=== PATIENT | male | born 1955 | race Caucasian/White ===

== ENCOUNTER 2017-11-27 11:41 | Day surgery (SDC) | payer MEDICARE, OTHER ==
[~2017-11-27] VITALS: Ht 180.3 cm; Wt 93.7 kg
[~2017-11-27 11:41] MED LIST: ALBU90OI INH; AMLO5 PO; ASPI325; ASPI81EC PO; Aspir-Low81 MG PO; CYAN1000; Cleocin HCl150 MG PO; ESCI10 PO; GEMF600 PO; GLIP5 PO; HYDACE10B PO; HYDACE5 PO; HYDCHL12.5 PO; INDO25; LISI20 PO; MELO7.5 PO; META800 PO; METF500 PO; METF850; METF850 PO; MULVITB&C; MULVITMIND; Mobic15 MG PO; Monodox100 MG PO; Multivitamin1 EAC1 PO; NAPR550 PO; NITR.4SL SL; Norco 10-325 T1 EACH PO; Prednisone20 MG PO; RAMI2.5; SPACE CHAMBER1 EACH MC; TRAZ50 PO; UNKNOWN HTN MED; UNKOWN B/P MED; VITAMIN B COMPLEX; Zestril40 MG PO; [UNRECOGNIZED DRUG - REMARK]; [UNRECOGNIZED DRUG - REMARK]
== END 2017-11-27 14:14 | disposition home or self-care (01) ==
LOC: ORSCSDS 11:41
PROVIDERS: Internal Medicine Gastroenterology
PROC: 0DBK8ZX Excision of Ascending Colon, Via Natural or Artificial Opening Endoscopic, Diagnostic (ICD-10-PCS; principal; 2017-11-27 13:00)
PROC: 0DBH8ZX Excision of Cecum, Via Natural or Artificial Opening Endoscopic, Diagnostic (ICD-10-PCS; principal; 2017-11-27 13:00)
DX: Z12.11 Encounter for screening for malignant neoplasm of colon (principal); D12.0 Benign neoplasm of cecum; D12.2 Benign neoplasm of ascending colon; Z86.010 Personal history of colon polyps; K64.8 Other hemorrhoids; K57.30 Diverticulosis of large intestine without perforation or abscess without bleeding; G47.33 Obstructive sleep apnea (adult) (pediatric); I10 Essential (primary) hypertension; J45.909 Unspecified asthma, uncomplicated; I25.10 Atherosclerotic heart disease of native coronary artery without angina pectoris; E11.9 Type 2 diabetes mellitus without complications; F43.10 Post-traumatic stress disorder, unspecified; Z87.891 Personal history of nicotine dependence; Z79.82 Long term (current) use of aspirin; Z79.84 Long term (current) use of oral hypoglycemic drugs; Z79.899 Other long term (current) drug therapy
CPT/HCPCS: 82947; 88305; J2250; J7120

== ENCOUNTER 2018-02-20 12:19 | Emergency (ER) | payer MEDICARE, OTHER ==
[~2018-02-20] VITALS: Ht 175.3 cm; Wt 95.2 kg
== END 2018-02-20 13:36 | disposition home or self-care (01) ==
LOC: ER 12:19
DX: S61.012A Laceration without foreign body of left thumb without damage to nail, initial encounter (principal); Z23 Encounter for immunization; I10 Essential (primary) hypertension; E11.9 Type 2 diabetes mellitus without complications; Z79.899 Other long term (current) drug therapy; Z79.84 Long term (current) use of oral hypoglycemic drugs; Z79.82 Long term (current) use of aspirin; W27.0XXA Contact with workbench tool, initial encounter
CPT/HCPCS: 12002; 90471; 90714; 99282

== ENCOUNTER 2019-05-10 09:20 | Day surgery (SDC) | payer MEDICARE ==
[~2019-05-10] VITALS: Ht 172.7 cm; Wt 91.6 kg
[~2019-05-10 09:20] MED LIST changes: +Lovastatin10 MG PO; +Metformin HCl850 MG PO; +PANT40 PO; +PROP80ER PO; +Vitamin B Comple1 EA PO
== END 2019-05-10 13:41 | disposition home or self-care (01) ==
LOC: ORSCSDS 09:20
PROVIDERS: Internal Medicine Gastroenterology
PROC: 0DBL8ZX Excision of Transverse Colon, Via Natural or Artificial Opening Endoscopic, Diagnostic (ICD-10-PCS; principal; 2019-05-10 12:45)
DX: R93.3 Abnormal findings on diagnostic imaging of other parts of digestive tract (principal); D12.3 Benign neoplasm of transverse colon; Z86.010 Personal history of colon polyps; G47.33 Obstructive sleep apnea (adult) (pediatric); I10 Essential (primary) hypertension; E78.1 Pure hyperglyceridemia; E11.9 Type 2 diabetes mellitus without complications; Z87.891 Personal history of nicotine dependence; E66.9 Obesity, unspecified; Z68.33 Body mass index [BMI] 33.0-33.9, adult; Z79.82 Long term (current) use of aspirin; Z79.84 Long term (current) use of oral hypoglycemic drugs; Z79.899 Other long term (current) drug therapy
CPT/HCPCS: 82947; 88305; J2250; J2704; J7120

== ENCOUNTER → 2019-06-01 | Outpatient (CLI) | payer MEDICARE, OTHER | END | disposition home or self-care (01) | LOC: LAB 09:44 → LAB SHORT 09:44 → LAB FUT 11-29 16:25 | DX: G25.0 Essential tremor (principal) | CPT/HCPCS: 36415; 84443 ==

== ENCOUNTER → 2019-08-10 | Outpatient (CLI) | payer MEDICARE, OTHER ==
[2019-08-10 14:24] LABS: U Amphetamine Screen Not Detected; U Barbituate Screen Not Detected; U Benzodiazapine Screen Not Detected; U Buprenorphine Screen Not Detected; U Cannabinoids Screen DETECTED; U Cocaine Screen Not Detected; U Methadone Screen Not Detected; U Methamphetamine Screen Not Detected; U Opiates Screen DETECTED; U Oxycodone Screen Not Detected; U Phencyclidine Screen Not Detected; U Propoxyphene Screen Not Detected
== END | disposition home or self-care (01) ==
LOC: LAB SHORT 13:07 → LAB 13:07
PROVIDERS: Nurse Practitioner Family
DX: Z51.81 Encounter for therapeutic drug level monitoring (principal); Z79.899 Other long term (current) drug therapy
CPT/HCPCS: G0480

== ENCOUNTER → 2020-10-02 | Outpatient (CLI) | payer MEDICARE | LOC: PLD 14:11 → LAB SHORT 14:11 | PROVIDERS: Nurse Practitioner Family | DX: F33.1 Major depressive disorder, recurrent, moderate (principal); F41.9 Anxiety disorder, unspecified; N40.1 Benign prostatic hyperplasia with lower urinary tract symptoms; R14.0 Abdominal distension (gaseous); R39.81 Functional urinary incontinence | CPT/HCPCS: 86677 ==

== ENCOUNTER 2021-09-03 10:03 | Day surgery (SDC) | payer MEDICARE, OTHER ==
[~2021-09-03] VITALS: Ht 167.6 cm; Wt 104.6 kg
[~2021-09-03 10:03] MED LIST changes: +ATOR40TA PO; +BUSP5 PO; +Bentyl10 MG PO; +CLOP75 PO; +DULO60 PO; +Dicyclomine HCl10 MG PO; +Isosorbide Mono30 MG PO; +SPIRIVA RESPIMAT4 G3 INH
--- NOTE | 2021-09-03 12:17 | NUR ---
09/03/21 1217 MOHSEN SULLIVAN PT PULLED IV AFTER SCOPE OUT AND SITE WAS ASSESSED/BANDAGED. END NOTE ORSC.RDS
== END 2021-09-03 12:20 | disposition home or self-care (01) ==
LOC: ORSCSDS 10:03
PROVIDERS: Internal Medicine Gastroenterology
PROC: 0DJD8ZZ Inspection of Lower Intestinal Tract, Via Natural or Artificial Opening Endoscopic (ICD-10-PCS; principal; 2021-09-03 12:00)
DX: Z12.11 Encounter for screening for malignant neoplasm of colon (principal); Z86.010 Personal history of colon polyps; K57.30 Diverticulosis of large intestine without perforation or abscess without bleeding; K64.4 Residual hemorrhoidal skin tags; I10 Essential (primary) hypertension; E66.9 Obesity, unspecified; Z68.37 Body mass index [BMI] 37.0-37.9, adult; I25.10 Atherosclerotic heart disease of native coronary artery without angina pectoris; J44.9 Chronic obstructive pulmonary disease, unspecified; Z87.891 Personal history of nicotine dependence; G47.33 Obstructive sleep apnea (adult) (pediatric); E11.9 Type 2 diabetes mellitus without complications; Z79.01 Long term (current) use of anticoagulants; Z79.84 Long term (current) use of oral hypoglycemic drugs; Z79.899 Other long term (current) drug therapy
CPT/HCPCS: 82947; J0461; J2405; J2704; J7120

== ENCOUNTER 2022-09-08 14:35 | Emergency (ER) | payer MEDICARE, OTHER ==
[~2022-09-08] VITALS: Ht 172.7 cm; Wt 108.9 kg
[2022-09-08 15:57] LABS: BASOPHILS ABSOLUTE AUTO 0.07 K/mm3 (0.00-0.23); BASOPHILS PERCENT AUTO 1 % (0-2); EOSINOPHILS ABSOLUTE AUTO 0.37 K/mm3 (0.00-0.68); EOSINOPHILS PERCENT AUTO 4 % (0-6); Hemoglobin 14.8 g/dL (13.5-17.5); IMMATURE GRAN ABSOLUTE AUTO 0.04 K/mm3 (0.00-0.10); IMMATURE GRAN PERCENT AUTO 1 % (0-1); LYMPHOCYTES ABSOLUTE AUTO 2.13 K/mm3 (0.84-5.20); LYMPHOCYTES PERCENT AUTO 26 % (21-46); MONOCYTES ABSOLUTE AUTO 0.68 K/mm3 (0.16-1.47); MONOCYTES PERCENT AUTO 8 % (4-13); Mean Corpuscular HGB 29.7 pg (26.0-34.0); Mean Corpuscular HGB Conc 33.6 g/dL (31.5-36.5); Mean Corpuscular Volume 88 fL (80-100); Mean Platelet Volume 9.2 fL (9.1-12.4); NEUTROPHILS ABSOLUTE AUTO 5.05 K/mm3 (1.96-9.15); NEUTROPHILS PERCENT AUTO 61 % (41-73); Platelet Count 287 K/mm3 (150-400); RDW Coefficient Variation 13.1 % (11.7-14.2); RDW Standard Deviation 41.8 fL (35.1-46.3); Red Blood Cell Count 4.98 M/mm3 (4.30-5.90); White Blood Cell Count 8.34 K/mm3 (4.00-11.30)
[2022-09-08 16:24] LABS: Albumin, Blood 3.9 g/dL (3.4-5.0); Albumin/Globulin Ratio 1.1 (0.8-1.8); Bilirubin, Total 0.5 mg/dL (0.1-1.0); Bun/Creatinine Ratio 19.9 (12.0-20.0); Calcium, Blood 9.5 mg/dL (8.5-10.1); Creatinine, Blood 0.95 mg/dL (0.60-1.20); Globulin, Blood 3.6 g/dL (2.2-4.0); Potassium, Blood 4.1 mmol/L (3.5-5.5); Total Protein, Blood 7.5 g/dL (6.4-8.2)
[2022-09-08] MEDS ORDERED: PRED20 PO (21:27)
[2022-09-08] MEDS ORDERED: AZIT250 PO (21:27)
== END 2022-09-08 21:40 | disposition home or self-care (01) ==
LOC: ER 14:35
PROVIDERS: Physician Assistant
DX: J44.1 Chronic obstructive pulmonary disease with (acute) exacerbation (principal); C34.92 Malignant neoplasm of unspecified part of left bronchus or lung; I10 Essential (primary) hypertension; E11.9 Type 2 diabetes mellitus without complications; G47.33 Obstructive sleep apnea (adult) (pediatric); Z87.891 Personal history of nicotine dependence
CPT/HCPCS: 36415; 71046; 71260; 80053; 84484; 85025; 93005; 93010; 94640; 94664; J2930; Q9967

== ENCOUNTER 2022-09-17 21:16 | Inpatient (IN) | payer MEDICARE, OTHER ==
[~2022-09-17] VITALS: Ht 172.7 cm; Wt 109.5 kg
[~2022-09-17 21:16] MED LIST changes: +AZIT250 PO; +Glucophage 850850 MG PO; -Metformin HCl850 MG PO; +PRED20 PO
[2022-09-17 22:09] LABS: BASOPHILS ABSOLUTE AUTO 0.05 K/mm3 (0.00-0.23); BASOPHILS PERCENT AUTO 0 % (0-2); EOSINOPHILS ABSOLUTE AUTO 0.45 K/mm3 (0.00-0.68); EOSINOPHILS PERCENT AUTO 3 % (0-6); Hemoglobin 15.1 g/dL (13.5-17.5); IMMATURE GRAN PERCENT AUTO 1 % (0-1); LYMPHOCYTES ABSOLUTE AUTO 2.61 K/mm3 (0.84-5.20); LYMPHOCYTES PERCENT AUTO 18 % (21-46); MONOCYTES ABSOLUTE AUTO 1.43 K/mm3 (0.16-1.47); MONOCYTES PERCENT AUTO 10 % (4-13); Mean Corpuscular HGB 29.9 pg (26.0-34.0); Mean Corpuscular HGB Conc 33.6 g/dL (31.5-36.5); Mean Corpuscular Volume 89 fL (80-100); Mean Platelet Volume 9.4 fL (9.1-12.4); NEUTROPHILS PERCENT AUTO 69 % (41-73); Platelet Count 350 K/mm3 (150-400); RDW Coefficient Variation 13.2 % (11.7-14.2); RDW Standard Deviation 43.3 fL (35.1-46.3); Red Blood Cell Count 5.05 M/mm3 (4.30-5.90); White Blood Cell Count 14.94 K/mm3 (4.00-11.30)
[2022-09-17 22:21] LABS: Base Excess Venous -2.3 mmol/L; Bicarbonate Venous 21.2 mmol/L (24.0-30.0); PCO2 Venous 55.8 mmHg (38-42); pH Blood Venous 7.26 (7.34-7.37)
[2022-09-17 22:28] LABS: Albumin, Blood 3.2 g/dL (3.4-5.0); Albumin/Globulin Ratio 0.9 (0.8-1.8); Bilirubin, Total 0.6 mg/dL (0.1-1.0); Bun/Creatinine Ratio 16.7 (12.0-20.0); Calcium, Blood 9.1 mg/dL (8.5-10.1); Creatinine, Blood 2.4 mg/dL (0.60-1.20); Globulin, Blood 3.5 g/dL (2.2-4.0); Total Protein, Blood 6.7 g/dL (6.4-8.2)
[2022-09-17 23:14] LABS: Influenza A, PCR NEGATIVE (NEGATIVE); Influenza B, PCR NEGATIVE (NEGATIVE); Resp Syncytial Virus, PCR NEGATIVE (NEGATIVE); SARS-Cov-2 (COVID-19) PCR, MMC NEGATIVE (NEGATIVE)
[2022-09-18 01:57] LABS: Base Excess Venous -5.3 mmol/L; Bicarbonate Venous 20.3 mmol/L (24.0-30.0); PCO2 Venous 36.2 mmHg (38-42); pH Blood Venous 7.36 (7.34-7.37)
--- NOTE | 2022-09-18 01:57 | NUR ---
ADMISSION: PT ARRIVED TO PCU 16. SLID OVER FROM [facility] BED VIA FOUR STAFF MEMEBERS. ALERT AND ORIENTED X4, ABLE TO FOLLOW COMMANDS AND MAKE NEEDS KNOWN. BP STABLE, HR SR 80'S, PULSES STRONG AND EQUAL THROUGHOUT. AFEBRILE. SATURATIONS >93% ON 4L NC, SWITCHED TO CPAP WITH 5L BLEED IN DUE TO WORK OF BREATHING. PT USING ACCESSORY MUSCLES, COMPLAINING OF PRESSURE IN THE LUNGS, MEDICATED PER EMAR. NEW DIGANOSIS OF LUNG CANCER NOTED, PT ADMITTED FOR L LUNG PLEURAL EFFUSION, PLAN FOR POSSIBLE THORACENTESIS IN AM. MED REC COMPLETED, ASPIRIN NOTED TO BE ON PT EMAR, RADIOLOGY MADE AWARE. PT ORIENTED TO ROOM AND CALL LIGHT SYSTEM. BED IN LOW, CALL LIGHT IN REACH, WILL REPORT TO ONCOMING RN.
[2022-09-18 02:19] LABS: Bun/Creatinine Ratio 18.9 (12.0-20.0); Creatinine, Blood 2.17 mg/dL (0.60-1.20); Potassium, Blood 4.6 mmol/L (3.5-5.5)
[2022-09-18 02:27] LABS: International Normalized Ratio 1.03; Prothrombin Time Results 10.8 Sec (9.7-11.5)
[2022-09-18 02:29] LABS: Hematocrit 41.3 % (37.0-53.0); Hemoglobin 13.6 g/dL (13.5-17.5); Mean Corpuscular HGB 29.8 pg (26.0-34.0); Mean Corpuscular HGB Conc 32.9 g/dL (31.5-36.5); Mean Corpuscular Volume 90 fL (80-100); Mean Platelet Volume 9.4 fL (9.1-12.4); Platelet Count 282 K/mm3 (150-400); RDW Coefficient Variation 13.3 % (11.7-14.2); RDW Standard Deviation 43.8 fL (35.1-46.3); Red Blood Cell Count 4.57 M/mm3 (4.30-5.90); White Blood Cell Count 10.87 K/mm3 (4.00-11.30)
--- NOTE | 2022-09-18 04:36 | NUR ---
SHIFT SUMMARY: NO ACUTE CHANGES SINCE ADMISSION, PT REMAINS ALERT AND ORIENTED X4, BP AND HR STABLE, AFEBRILE, SATS >94% ON CPAP WITH 5L BLEED IN. RESPIRATIONS LABORED, SHORT OF BREATH WITH MOVEMENT. MEDICATED X1 FOR PAIN, RESPONDED WELL. ABLE TO USE URINAL AT BEDSIDE. PLAN FOR THORACENTESIS IN AM. BED IN LOW, CALL LIGHT IN REACH, WILL REPORT TO ONCOMING RN.
[2022-09-18 10:26] LABS: Automated BF RBC Count 0.077 M/mm3 (0-0); Automated BF WBC Count 1.416 K/mm3 (0-999)
[2022-09-18 10:28] LABS: Body Fluid WBC Count 1416 /mm3 (0-999); RBC Count, Body Fluid 77000 /mm3 (0-0)
[2022-09-18 12:09] LABS: Appearance, Body Fluid Cloudy (Clear); Color, Body Fluid Red (None-Yellow); Total Cell Count, Body Fluid 100
--- NOTE | 2022-09-18 14:21 | NUR ---
Spiritual Care visit. Pt. is awake and sitting up on the side of bad and welcomes my visit. Nurse Yumiko was taking vitials when I visited. Pt. is pleasant and verbalizes a confidence in his dm, in spite of his uncertain prognosis. Establish rapport and pray with Pt. Pt. verbalized gratitude for the spiritual care visit.
--- NOTE | 2022-09-18 17:58 | NUR ---
END OF SHIFT NOTE / MEDICAL STATUS PT A&O X4. MADE MEDICAL NO TELE STATUS TODAY. PT VSS. SPO2 > 92% ON 4L TITRATED TO 2L NC. PT DOWN TO 1L BUT NEEDED INCREASE TO 2L FOR AMBULATION. MONITOR SHOWING SR, HR 80s-90s PRIOR TO TELEMETRY DC. PT INDEPENDENT IN RM. NO EVENTS.
[2022-09-18 18:33] LABS: Protein, Body Fluid 4.4 g/dL
[2022-09-18 18:57] LABS: Lactate Dehydrogenase, Body Fl 723 U/L
[2022-09-18 19:01] LABS: Total Protein, Blood 5.8 g/dL (6.4-8.2)
[2022-09-18] MEDS ORDERED: Vistaril50 MG PO (19:43)
--- NOTE | 2022-09-19 05:19 | NUR ---
Shift Summary Pt c/o insomnia for 3 days and inability to sleep. Gave a 2nd PRN Hydroxyzine at 0300 to help insomnia related anxiety. Pt appears to be asleep. He is wearing his CPAP all night and states the mask is not an issue, he isn't sure why he can't sleep. AOX4, VSS, independent in room, no pain or nausea. SP02>95% t/o shift. Pleasant and cooperative with care.
[2022-09-19 05:30] LABS: Hematocrit 45.4 % (37.0-53.0); Mean Corpuscular HGB 29.6 pg (26.0-34.0); Mean Corpuscular Volume 90 fL (80-100); Mean Platelet Volume 9.7 fL (9.1-12.4); Platelet Count 285 K/mm3 (150-400); RDW Coefficient Variation 13.2 % (11.7-14.2); RDW Standard Deviation 43.4 fL (35.1-46.3); Red Blood Cell Count 5.06 M/mm3 (4.30-5.90); White Blood Cell Count 10.74 K/mm3 (4.00-11.30)
[2022-09-19 06:04] LABS: Albumin, Blood 2.8 g/dL (3.4-5.0); Anion Gap 7 mmol/L (6-16); Blood Urea Nitrogen 26 mg/dL (8-24); CO2, Blood 24 mmol/L (21-32); Calcium, Blood 8.6 mg/dL (8.5-10.1); Chloride, Blood 104 mmol/L (98-108); Creatinine, Blood 1.24 mg/dL (0.60-1.20); Glomerular Filtration Rate 65 (60-); Glucose, Blood 155 mg/dL (70-99); Phosphorus, Blood 3.1 mg/dL (2.5-4.9); Potassium, Blood 4.2 mmol/L (3.5-5.5); Sodium, Blood 135 mmol/L (136-145)
[2022-09-19] MEDS ORDERED: MIRALAX17 GM PO (12:25)
[2022-09-19] MEDS ORDERED: AZIT500 PO (12:26)
[2022-09-19] MEDS ORDERED: VISBIOME 112.51 EACH PO (12:26)
[2022-09-19] MEDS ORDERED: CEFD300 PO (12:26)
--- NOTE | 2022-09-19 14:21 | NUR ---
NOTES/DISCHARGE SUMMARY: PATIENT A&OX4. CALM, PLEASANT AND COOPERATIVE c CARE. USES CALL LIGHT APPROPRIATELY AND ABLE TO MAKE NEEDS KNOWN. DENIES CP/PRESSURE. LUNGS CLEAR/DIM T/O TO AUSCULTATION. DENIES SOB. AMBULATES TO BATHROOM INDEPENDENTLY. VITAL SIGNS REVIEWED. IV TO R AC WAS DC'D. PATIENT RECEIVED SCHEDULE MEDS PER EMAR. DENIES N/V. REPORT PAIN 10/10 TO L HIP, MEDICATED X1 c OXYCODONE. REPORTS PAIN DOWN TO 2/10. PATIENT TOLERATED PO WELL. PATIENT DISCHARGE HOME. DISCHARGE INSTRUCTION PACKET GIVEN TO PATIENT. EDUCATE PATIENT REGARDING ADMITTING DX, S/S, TX AND NEW PRESCRIBED MEDICATIONS. PATIENT STATED UNDERSTANDING AND NO FURTHER QUESTIONS. RX WAS FAXED TO PATIENT PREFERRED PHARMACY ([facility] ALL PATIENT PERSONAL BELONGINGS WERE SENT HOME WITH THE PATIENT. PATIENT LEFT THE ROOM AT AROUND 1355. PATIENT TRANSPORTED VIA WHEELCHAIR BY [employer] DECAPPER STAFF WILVER TO PATIENT FAMILY PRIVATE VEHICLE.
[2022-09-20] MEDS ORDERED: SYMBICORT 80-46.9 GM INH (16:14)
[2022-09-20] MEDS ORDERED: EZET10 PO (16:16)
[2022-09-20] MEDS ORDERED: ALBU90OI INH (16:17)
[2022-09-20] MEDS ORDERED: JARDIANCE10 MG PO (16:18)
== END 2022-09-19 13:55 | disposition home or self-care (01) | DRG 180 ==
LOC: ER 21:16 → PCU 23:51 → MEDS 23:51 → PCU 09-18 00:10 → MEDS 09-18 21:40
PROVIDERS: Emergency Medicine; Internal Medicine; ADMIT Internal Medicine
PROC: 0W9B30Z Drainage of Left Pleural Cavity with Drainage Device, Percutaneous Approach (ICD-10-PCS; principal; 2022-09-18)
DX: C34.32 Malignant neoplasm of lower lobe, left bronchus or lung (principal); J18.9 Pneumonia, unspecified organism; J96.01 Acute respiratory failure with hypoxia; J96.02 Acute respiratory failure with hypercapnia; N17.9 Acute kidney failure, unspecified; E87.20 Acidosis, unspecified; E87.1 Hypo-osmolality and hyponatremia; J91.0 Malignant pleural effusion; J44.0 Chronic obstructive pulmonary disease with (acute) lower respiratory infection; Z20.822 Contact with and (suspected) exposure to COVID-19; I10 Essential (primary) hypertension; G47.33 Obstructive sleep apnea (adult) (pediatric); I95.9 Hypotension, unspecified; E11.9 Type 2 diabetes mellitus without complications; E66.9 Obesity, unspecified; F43.10 Post-traumatic stress disorder, unspecified; E86.0 Dehydration; Z68.36 Body mass index [BMI] 36.0-36.9, adult; Z99.89 Dependence on other enabling machines and devices; Z90.49 Acquired absence of other specified parts of digestive tract; Z98.890 Other specified postprocedural states; Z87.891 Personal history of nicotine dependence; Z85.118 Personal history of other malignant neoplasm of bronchus and lung; Z79.02 Long term (current) use of antithrombotics/antiplatelets; Z79.82 Long term (current) use of aspirin; Z79.84 Long term (current) use of oral hypoglycemic drugs; Z79.899 Other long term (current) drug therapy
CPT/HCPCS: 0241U; 32555; 36415; 71045; 80048; 80053; 80069; 82803; 82947; 83605; 83615; 83880; 84145; 84155; 84157; 84484; 85025; 85027; 85610; 85730; 87040; 87070; 87205; 88108; 88305; 88341; 88342; 89051; 93005; 93010; 94640; 94660; 94664; 94760; 94762; 96361; 96374; 99285-25; A9270; J0696; J1650; J7030

== ENCOUNTER 2022-10-28 19:34 | Emergency (ER) | payer MEDICARE, OTHER ==
[~2022-10-28] VITALS: Ht 170.2 cm; Wt 103.4 kg
[~2022-10-28 19:34] MED LIST changes: +AZIT500 PO; +CEFD300 PO; +EZET10 PO; +JARDIANCE10 MG PO; +MIRALAX17 GM PO; +Percocet 5-3251 EACH PO; +SYMBICORT 80-46.9 GM INH; +VISBIOME 112.51 EACH PO; +Vistaril50 MG PO
[2022-10-28] MEDS ORDERED: Percocet 5-3251 EACH PO (20:38)
== END 2022-10-28 20:48 | disposition home or self-care (01) ==
LOC: ER 19:34
DX: M54.9 Dorsalgia, unspecified (principal); G89.29 Other chronic pain; C34.90 Malignant neoplasm of unspecified part of unspecified bronchus or lung; Z79.899 Other long term (current) drug therapy; Z79.82 Long term (current) use of aspirin; Z79.84 Long term (current) use of oral hypoglycemic drugs; G47.33 Obstructive sleep apnea (adult) (pediatric); J44.9 Chronic obstructive pulmonary disease, unspecified; E11.9 Type 2 diabetes mellitus without complications; F43.10 Post-traumatic stress disorder, unspecified
CPT/HCPCS: 99283; A9270

== ENCOUNTER 2023-07-14 12:41 | Inpatient (IN) | payer MEDICARE, OTHER ==
[~2023-07-14] VITALS: Ht 172.7 cm; Wt 88.7 kg
[2023-07-14] MEDS ORDERED: Prozac20 MG PO (13:04)
[2023-07-14] MEDS ORDERED: Bentyl10 MG PO (13:05)
[2023-07-14 13:11] LABS: BASOPHILS ABSOLUTE AUTO 0.03 K/mm3 (0.00-0.23); BASOPHILS PERCENT AUTO 1 % (0-2); EOSINOPHILS ABSOLUTE AUTO 0.33 K/mm3 (0.00-0.68); EOSINOPHILS PERCENT AUTO 8 % (0-6); Hematocrit 34.2 % (37.0-53.0); Hemoglobin 11.1 g/dL (13.5-17.5); IMMATURE GRAN ABSOLUTE AUTO 0.01 K/mm3 (0.00-0.10); IMMATURE GRAN PERCENT AUTO 0 % (0-1); LYMPHOCYTES PERCENT AUTO 26 % (21-46); MONOCYTES ABSOLUTE AUTO 0.54 K/mm3 (0.16-1.47); MONOCYTES PERCENT AUTO 13 % (4-13); Mean Corpuscular HGB 29.1 pg (26.0-34.0); Mean Corpuscular HGB Conc 32.5 g/dL (31.5-36.5); Mean Corpuscular Volume 90 fL (80-100); Mean Platelet Volume 8.6 fL (9.1-12.4); NEUTROPHILS ABSOLUTE AUTO 2.23 K/mm3 (1.96-9.15); NEUTROPHILS PERCENT AUTO 53 % (41-73); Platelet Count 216 K/mm3 (150-400); RDW Coefficient Variation 15.9 % (11.7-14.2); RDW Standard Deviation 52.4 fL (35.1-46.3); Red Blood Cell Count 3.81 M/mm3 (4.30-5.90); White Blood Cell Count 4.24 K/mm3 (4.00-11.30)
[2023-07-14 13:43] LABS: Influenza A, PCR NEGATIVE (NEGATIVE); Influenza B, PCR NEGATIVE (NEGATIVE); Resp Syncytial Virus, PCR NEGATIVE (NEGATIVE); SARS-Cov-2 (COVID-19) PCR, MMC NEGATIVE (NEGATIVE)
[2023-07-14 13:47] LABS: Base Excess Venous 4.8 mmol/L; Bicarbonate Venous 28.1 mmol/L (24.0-30.0); PCO2 Venous 44.5 mmHg (38-42); pH Blood Venous 7.43 (7.34-7.37)
[2023-07-14 14:04] LABS: Albumin, Blood 3.4 g/dL (3.4-5.0); Albumin/Globulin Ratio 0.8 (0.8-1.8); Bilirubin, Total 0.6 mg/dL (0.1-1.0); Bun/Creatinine Ratio 15.9 (12.0-20.0); Calcium, Blood 9.4 mg/dL (8.5-10.1); Creatinine, Blood 0.76 mg/dL (0.60-1.20); Globulin, Blood 4.2 g/dL (2.2-4.0); Total Protein, Blood 7.6 g/dL (6.4-8.2)
[2023-07-14 17:41] VITALS: BP 149/78
[2023-07-14] MEDS ORDERED: DULO60 PO (18:08)
[2023-07-14] MEDS ORDERED: GLUCOPHAGE1000 M3 PO (18:09)
[2023-07-14] MEDS ORDERED: Prozac40 MG PO (18:09)
[2023-07-14] MEDS ORDERED: PROP160ER PO (18:09)
[2023-07-14] MEDS ORDERED: EZET10 PO (18:10)
[2023-07-14] MEDS ORDERED: TRAZ150T57 PO (18:11)
[2023-07-14] MEDS ORDERED: JARDIANCE10 MG PO (18:11)
[2023-07-14] MEDS ORDERED: Norco 10-325 T1 EACH PO (18:12)
--- NOTE | 2023-07-14 19:19 | NUR ---
SHIFT SUMMARY: ASSUMED CARE OF PATIENT UPON HIS ARRIVAL FROM ED AT 1735 TODAY. A&O X 4, PLEASANT. C/O L CHEST (MIDAXILLARY) PAIN; MEDICATED WITH DILAUDID WITH SOME RELIEF. ON O2 @ 4 L/MIN NC WITH HUMIDIFICATION; USES 3 L/MIN AT HOME. BREATH SOUNDS ARE DIM THROUGHOUT, DYSPNEIC AND TACHYPNEIC. C/O FEELING CONSTIPATED FROM PAIN MEDS TAKEN THE LAST THREE DAYS; HAS BOWEL MEDS ORDERED, GAVE PRUNE JUICE. TOLERATING DIET BUT NOT EATING MUCH. IS SUPPOSED TO HAVE HIS SCHEDULED CHEMO TOMORROW, BUT THIS AUTHOR ADVISED HIM TO CALL THE CANCER CENTER AND RESCHEDULE HIS APPOINTMENT.
[2023-07-14 19:54] VITALS: BP 146/80
[2023-07-15 02:57] VITALS: BP 168/88
[2023-07-15 06:01] LABS: Hematocrit 34.2 % (37.0-53.0); Hemoglobin 11.2 g/dL (13.5-17.5)
[2023-07-15 06:29] LABS: Bun/Creatinine Ratio 20.5 (12.0-20.0); Calcium, Blood 9.5 mg/dL (8.5-10.1); Creatinine, Blood 0.68 mg/dL (0.60-1.20); Potassium, Blood 3.9 mmol/L (3.5-5.5)
--- NOTE | 2023-07-15 07:21 | NUR ---
SHIFT SUMMARY TOVA IS A&OX4, VERY PLEASANT AND COOPERATIVE WITH CARES. BP ELEVATED, HR IN THE 90'S, O2 >95% ON 3L NC WITH HUMIDIFICATION, CPAP ON WHILE ASLEEP. PT BECOMES MORE DYSPNEIC AND TACHYPNEIC WITH EXERTION. C/O PAIN ON LEFT SIDE OF CHEST, MIDAXILLARY, 8-10/10. PAIN MEDICATIONS PER EMAR, MINIMALLY EFFECTIVE. TOLERATING AN ADA DIET, NO N/V. PT C/O FEELING CONSTIPATED, BOWEL MEDS GIVEN PER EMAR, NO BM THIS SHIFT. VOIDING ADEQUATE AMOUNTS OF CLEAR YELLOW URINE IN THE BR, OR URINAL. UP IN ROOM INDEPENDENTLY. PT AWAKE MOST OF NIGHT D/T PAIN AND NOT GETTING COMFORTABLE. PT HAS A SIGNIFICANT SHAKE/TREMOR R/T HIS PAIN. THE WORSE HIS PAIN BECOMES, THE MORE SEVERE HE SHAKES. PT IS SCHEDULED FOR CHEMO TODAY. PT IS FEELING FRUSTRATED D/T NOT KNOWING WHAT HIS PLAN OF CARE IS. BED IN LOWEST POSITION, CALL LIGHT WITHIN REACH. FIRE SAFETY CHECKS COMPLETED
[2023-07-15 07:22] VITALS: BP 155/78
--- NOTE | 2023-07-15 10:40 | NUR ---
"Spiritual Care | Pt. request Pt. is sitting up in bed when he welcomes my visit. Pt. is pleasant but displays evidence of visceral pain in his side. Facilitate a life review and established some measure of rapport. Considered matters of dm and belief. Prayed with Pt. Pt. verbalized gratitude for the spiritual care visit."
--- NOTE | 2023-07-15 11:08 | NUR ---
CALLED DR KELLER OFFICE- PT HAD AN INFUSION TODAY SCHEDULED FOR 10:30 PT WAS CONFUSED AND THOUGHT IT WAS AT 14:30. PER THE CANCER CENTER THE PT CAN NOT HAVE AN INFUSION ON THE SAME DAY HE IS DISCHARGED. PT IS TO CALL TO SCHEDULE AT THE TIME OF DISCHARGE.
[2023-07-15] MEDS ORDERED: ALBU2.5V5 INH (15:08)
[2023-07-15] MEDS ORDERED: DOCU100 PO (15:08)
[2023-07-15] MEDS ORDERED: BISA10S PR (15:08)
[2023-07-15 15:19] VITALS: BP 129/80
--- NOTE | 2023-07-15 16:21 | NUR ---
SHIFT SUMMARY- PT HAS BEEN IN ALOT OF PAIN THIS SHIFT. NEW DOSE OF OXY SEEMS TO BE HELPING. THE PT HAS RECIEVED MULTIPLE BOWEL CARE MEDS WITH NO RESULT, HOWEVER WITH THE USE OF PO AND IV PAIN MEDICATION THE PT RATES HIS PAIN AT 2/10 CURRENTLY. PT IS UP INDEPENDENTLY IN THE ROOM AND THE HALLS. NO S&S OF DISTRESS NOTED AT THIS TIME. PT IN THE CHAIR, CALL LIGHT IN REACH.
[2023-07-15 20:56] VITALS: BP 142/79
[2023-07-16 03:58] VITALS: BP 155/85
[2023-07-16 05:46] LABS: Hematocrit 36.3 % (37.0-53.0); Hemoglobin 11.6 g/dL (13.5-17.5)
[2023-07-16 06:14] LABS: Bun/Creatinine Ratio 21.8 (12.0-20.0); Calcium, Blood 9.4 mg/dL (8.5-10.1); Creatinine, Blood 0.83 mg/dL (0.60-1.20); Potassium, Blood 3.7 mmol/L (3.5-5.5)
--- NOTE | 2023-07-16 07:45 | NUR ---
SHIFT SUMMARY PT IS A&OX4, PLEASANT AND APPRECIATIVE OF CARES. VSS, BP ELEVATED, HR 90'S-100'S, O2 SATS >95% ON 3L NC, CPAP WHILE ASLEEP. PT RATES HIS PAIN ON L SIDE OF CHEST MIDAXILLARY, 8-10/10. 20 MG PERCOCET GIVEN WITH LITTLE RELIEF, HAD TO GIVE PT 2 MG IV DILAUDID 2 HOURS AFTER PERCOCET. TOLERATING AN ADA DIET, TRIES TO NOT EAT BECAUSE HE IS AFRAID OF THE PAIN TO COME. UP AD TERESA IN ROOM/BR. RESTLESS. VOIDING ADEQUATE AMOUNTS OF YELLOW URINE, NO BM THIS SHIFT. WENT TO CT SCAN AT BEGINNING OF SHIFT. BED IN LOWEST POSITION, CALL LIGHT WITHIN REACH.
[2023-07-16 08:34] VITALS: BP 142/87
--- NOTE | 2023-07-16 14:14 | NUR ---
CALLED PALLIATIVE CARE FRANCISCO BUTLER IS ASSISTING WITH SYMPTOM MANAGEMENT. PT HAS NOW REQUIRED ANOTHER DOSE OF IV PAIN MEDICATION; ALL PO OPTIONS WERE UNAVAILABLE, BECAUSE THE PT HAD ALREADY HAD THEM. FRANCISCO BUTLER IS PLANNING TO CALL DR FARMER ABOUT THIS PT AND WILL DISCUSS THE PAIN MEDS TO TRY TO BETTER CONTROL THE PT PAIN.
--- NOTE | 2023-07-16 14:22 | NUR ---
Med review done-spoke with Dr. Bowers regarding this patient's uncontrolled pain. Currently, the pt is taking scheduled 20mg Oxycontin twice daily along with prn oxycodone/apap 10/325mg, 2 tabs every 4 hours as needed, along with 1-2mg Dilaudid IV every 4 hours. He has continued to c/o 6/10 up to 10/10 pain. The goal is to reach an acceptable pain level of 4/10 consistently without the use of IV pain medicine so he can go home comfortably to follow up with oncologist as outpatient. Dr. Bowers reports increased in both oxycodone and oxycontin dosing in the past 24 hours, wants to wait until tomorrow morning before re-evaluating the medication care plan. Discussion with bedside RN, she will continue attempting to help patient reach 4/10 pain, and will report to noc shift to continue with the same plan for now. If we can help pt reach and stay at 4/10 pain, can re-evaluate and make necessary pain medication changes in the am.
--- NOTE | 2023-07-16 14:24 | NUR ---
SPOKE TO DR FARMER- HE IS AWARE THE PT IS STILL REQUIRING IV PAIN MEDICATION. HE IS AWARE. WE WILL CONTINUE TO MONITOR PAIN AND REEVALUATE NEED FOR CHANGES IN PAIN REGIMEN TOMORROW MORNING.
[2023-07-16 16:43] VITALS: BP 140/91
[2023-07-16 17:07] VITALS: BP 137/89
--- NOTE | 2023-07-16 17:10 | NUR ---
CALLED DR FARMER- PT NOW C/O LEFT SIDED CHEST PAIN. RATES IT 7/10 STABBING PAIN IN THE LEFT CHEST AND IT IS WORSE WITH ACTIVITY. PT DOES HAVE LUNG CANCER WITH METS HOWEVER THIS IS A NEW PAIN COMPLAINT. CALLED AND RECIEVED A STAT EKG ORDER.
[2023-07-16 18:05] VITALS: BP 150/84
--- NOTE | 2023-07-16 18:07 | NUR ---
PT WAS HEARD GRUNTING AND LABORED BREATHING, ENTERED THE ROOM AND THE PT WAS AT THE EOB ANNAMARIE BREATHING DOUBLED OVER C/O CP SHARP AND STABBING. DENIES ANY N/T OR RADIATION OF PAIN. NO PRESSURE. RATED THE PAIN AT THE TIME 8/10. AFTER HE WAS LAID FLAT AND VITALS CHECKED HE LOOKED MORE RELAXED AND NOW RATES HIS PAIN 4/10.
--- NOTE | 2023-07-16 19:03 | NUR ---
SHIFT SUMMARY- DR FARMER WAS CALLED ABOUT THE MOST RECENT CHEST PAIN AND ORDERED OT DOSE OF ASPIRIN WELL TO GIVE IV DILAUDID NOW. PT PAIN WAS 4/10 WHEN DILAUDID WAS ADMINISTERED FOLLOW UP HE STATES PAIN IS STILL 4/10. PT IN BED, LAYING FLAT, CPAP IN PLACE. PT HAS BEEN INDEPENDENT IN THE ROOM AND THE HALLS. 3L O2 AT BASELINE. EKG WAS DONE AFTER INITIAL CP COMPLAINT. TROPONIN WAS STILL LOW, ADDITIONAL TROPONIN CHECK AT 1999. PT CURRENTLY HAS NO S&S OF DISTRESS.
[2023-07-16 20:15] VITALS: BP 165/87
--- NOTE | 2023-07-17 02:03 | NUR ---
SHIFT SUMMARY PT RESTING QUIETLY, LF, WITH CPAP ON DURING SHIFT REPORT. PT REPORTING L SIDE AND LUQ ABD PAIN 4/10 AT TIME OF REPORT. SOON AFTER REPORT, PT SITTING UP IN BED C/O SHARP L SIDE ABD PAIN. CHRG RN IN TO CK ON PT WELL, FINDING PT VERY ANXIOUS AND RESTLESS. PT HAD BEEN MEDICATED PER EMAR WITH ALL AVAILABLE PAIN MEDICATION PRIOR TO START OF NOC SHIFT. TOP TILE DECORATOR HOSPITALIST NOTIFIED FOR ANXIETY MEDICATION; NEW ORDERS PLACED. PT THEN CALMED DOWN AND LAY MORE FLAT IN BED AND WENT TO SLEEP. PT WOKE A FEW HOURS LATER REPORTING THAT HE WAS HURTING AGAIN; MEDICATED PER EMAR AND PT WENT BACK TO SLEEP. PT IS INDEPENDENT IN AND IN HALLS. A&O AND ABLE TO MAKE NEEDS KNOWN. TROPONINS NEG; SEE CHART. CALL LT IN REACH.
[2023-07-17 04:13] VITALS: BP 138/83
[2023-07-17 05:49] LABS: Hematocrit 35.5 % (37.0-53.0); Hemoglobin 11.4 g/dL (13.5-17.5)
[2023-07-17 07:15] VITALS: BP 152/78
[2023-07-17 12:50] VITALS: BP 126/73
[2023-07-17 15:21] VITALS: BP 123/66
[2023-07-17 18:17] VITALS: BP 109/72
--- NOTE | 2023-07-17 18:19 | NUR ---
CALLED DR LI- PT HR HAS BEEN TACHY T/O THE DAY. 120-150. HE HAS BEEN DIAPHORETIC OFF AND ON AND A LITTLE MORE SOB. HOWEVER PAIN WAS OUT OF CONTROL. PT STATES THE PAIN IS UNDER CONTROL AT THIS TIME AND HE NO LONGER APPEARS ANXIOUS. REQUESTED PO RATE CONTROL MEDICATION. RECIEVED ORDER FOR METOPROLOL TARTRATE BID FIRST DOSE NOW. PRN IV FOR SUSTAINED HR OVER 130 Q6 NEEDED.
--- NOTE | 2023-07-17 18:34 | NUR ---
Multiple visits from symptom mangement. Pt having more pressure in his torso from burden of metastatic disease. Started on toradol and put in pulmonary consult. Hoping speaking with physcian would help him with decisions. He still wants to fight and is refusing hospice care. Pt has a disabled daughter he wants to live for. pt high risk for sudden cardiac event or respitory failue. Nurseing encouraged his to call his family today and rall support for his daughter. He called his sister. Will continue to monitor.
--- NOTE | 2023-07-17 19:54 | NUR ---
SHIFT SUMMARY- SPOKE TO PALLIATIVE CARE, AND MD MULTIPLE TIMES T/O THE DAY. PT HR HAS BEEN TACHY 125-150. PAIN UNMANAGEABLE THIS MORNING, ADDED TORADOL AND SCHEDULED NAPROXEN, INCREASED OXYCONTIN TO 30 MG BID. PT WAS ANXIOUS MEDICATED WITH ATARAX. WHEN HR WAS STAYING SINUS TACH 150'S PT WAS SOB AND DIAPHORETIC. DR GARRIDO CAME TO THE BEDSIDE. STAT EKG WAS DONE. PT PAIN WAS WELL MANAGED WITH THE IV TORADOL. SPOKE TO DR LI ABOUT THE CHANGE AFTER TORADOL AND SHE PLACED BID NAPROXEN. THIS EVENING PAIN AND ANXIETY APPEARED TO BE WELL MANAGED. CALLED DR LI AGAIN ABOUT THE ELEVATED HR (SEE PREV NOTE FOR DETAILS). PT RECIEVED PO METOPROLOL THIS EVENING HR IS CURRENTLY SINUS AT 93. PRN AVAILABLE IF NEEDED TONIGHT. PT IN BED ON HIS CPAP O2 SATS 98% HR 93 AT THE TIME OF BEDSIDE REPORT. PT STATES PAIN 3/10 AT THIS TIME. NIGHT RN AWARE. NO S&S OF DISTRESS NOTED.
[2023-07-17 20:38] VITALS: BP 143/74
--- NOTE | 2023-07-18 03:08 | NUR ---
SHIFT SUMMARY PT AWAKE AND SITTING UP TO EOB THIS EVENING DURING SHIFT REPORT. PT FEELING MUCH BETTER TONIGHT THAN LAST NIGHT. PT REQUESTING PAIN MEDICATION ONLY ONCE THIS SHIFT TONIGHT, WITH MUCH BETTER PAIN CONTROL. PT GIVEN TORADOL AND NAPROXEN DURING DAY SHIFT WITH GOOD EFFECT. UP INDEPENDENTLY IN RM AND TO BTHRM. DENIED FURTHER NEEDS. CALL LT IN REACH.
[2023-07-18 04:36] VITALS: BP 132/77
[2023-07-18 07:16] VITALS: BP 129/78
[2023-07-18 07:33] LABS: BASOPHILS ABSOLUTE AUTO 0.02 K/mm3 (0.00-0.23); BASOPHILS PERCENT AUTO 1 % (0-2); EOSINOPHILS ABSOLUTE AUTO 0.29 K/mm3 (0.00-0.68); EOSINOPHILS PERCENT AUTO 9 % (0-6); Hematocrit 33.9 % (37.0-53.0); Hemoglobin 10.7 g/dL (13.5-17.5); IMMATURE GRAN ABSOLUTE AUTO 0.02 K/mm3 (0.00-0.10); IMMATURE GRAN PERCENT AUTO 1 % (0-1); LYMPHOCYTES ABSOLUTE AUTO 0.85 K/mm3 (0.84-5.20); LYMPHOCYTES PERCENT AUTO 25 % (21-46); MONOCYTES ABSOLUTE AUTO 0.56 K/mm3 (0.16-1.47); MONOCYTES PERCENT AUTO 17 % (4-13); Mean Corpuscular HGB 28.8 pg (26.0-34.0); Mean Corpuscular HGB Conc 31.6 g/dL (31.5-36.5); Mean Corpuscular Volume 91 fL (80-100); Mean Platelet Volume 8.8 fL (9.1-12.4); NEUTROPHILS ABSOLUTE AUTO 1.63 K/mm3 (1.96-9.15); NEUTROPHILS PERCENT AUTO 48 % (41-73); Platelet Count 236 K/mm3 (150-400); RDW Coefficient Variation 15.9 % (11.7-14.2); RDW Standard Deviation 53.6 fL (35.1-46.3); Red Blood Cell Count 3.72 M/mm3 (4.30-5.90); White Blood Cell Count 3.37 K/mm3 (4.00-11.30)
[2023-07-18 15:55] VITALS: BP 124/69
--- NOTE | 2023-07-18 17:48 | NUR ---
SHIFT SUMMARY Pt remains A&Ox3 this shift. Pain managed with po regime. Pt took "nice nap" this afternoon. VSS. Tolerating meals. BM today. Ambulating independently in room. No futher needs id or verbalized at this time. Will continue to monitor this shift.
[2023-07-18 19:11] VITALS: BP 114/87
[2023-07-19 04:37] VITALS: BP 125/71
--- NOTE | 2023-07-19 05:35 | NUR ---
SHIFT SUMMARY PATIENT IS ALERT AND ORIENTED. PATIENT HAS HAD NO ACUTE EVENTS THIS SHIFT. VITAL SIGNS REVIEWED. PATIENT HAS REQUIRED Q4 PAIN MEDICATIONS WITH BETTER SUCCESS THAN PREVIOUS SHIFTS. PATIENT HAS HAD NO COMPLAINTS OF SOB, NAUSEA OR VOMITTING THIS SHIFT.
[2023-07-19 06:09] LABS: BASOPHILS ABSOLUTE AUTO 0.02 K/mm3 (0.00-0.23); BASOPHILS PERCENT AUTO 1 % (0-2); EOSINOPHILS PERCENT AUTO 13 % (0-6); Hematocrit 32.2 % (37.0-53.0); Hemoglobin 10.3 g/dL (13.5-17.5); IMMATURE GRAN ABSOLUTE AUTO 0.01 K/mm3 (0.00-0.10); IMMATURE GRAN PERCENT AUTO 0 % (0-1); LYMPHOCYTES PERCENT AUTO 23 % (21-46); MONOCYTES ABSOLUTE AUTO 0.55 K/mm3 (0.16-1.47); MONOCYTES PERCENT AUTO 14 % (4-13); Mean Corpuscular Volume 91 fL (80-100); Mean Platelet Volume 8.4 fL (9.1-12.4); NEUTROPHILS ABSOLUTE AUTO 2.02 K/mm3 (1.96-9.15); NEUTROPHILS PERCENT AUTO 50 % (41-73); Platelet Count 220 K/mm3 (150-400); RDW Coefficient Variation 15.9 % (11.7-14.2); RDW Standard Deviation 53.3 fL (35.1-46.3); Red Blood Cell Count 3.55 M/mm3 (4.30-5.90)
[2023-07-19 06:45] LABS: Bun/Creatinine Ratio 20.1 (12.0-20.0); Calcium, Blood 8.8 mg/dL (8.5-10.1); Creatinine, Blood 0.95 mg/dL (0.60-1.20); Potassium, Blood 4.2 mmol/L (3.5-5.5)
[2023-07-19 07:12] VITALS: BP 123/78
[2023-07-19] MEDS ORDERED: OXYC10ER PO (12:00)
[2023-07-19] MEDS ORDERED: TAMS.4ER PO (12:02)
[2023-07-19] MEDS ORDERED: Percocet 10-321 EACH PO (12:02)
[2023-07-19] MEDS ORDERED: NAPR500 PO (13:06)
--- NOTE | 2023-07-19 14:16 | NUR ---
SHIFT/DISCHARGE SUMMARY Pt remains A&Ox3 this shift. VSS. Pain managed with po regime. Ambulating independently in room. Tolerating meals and fluids. Voiding without difficulty. All discharge instruction reviewed with return verbal understanding. Two hard scripts given to pt. Home portable oxygen at bedside. Awaiting friend to drive pt to pharmacy and home.
== END 2023-07-19 14:28 | disposition home health service (06) | DRG 180 ==
LOC: ER 12:41 → MEDS 12:42 → ENPENDDIS 07-15 11:12 → MEDS 07-15 16:01
PROVIDERS: Emergency Medicine; Family Medicine; Physician Assistant; ADMIT Hospitalist
PROC: 5A09357 Assistance with Respiratory Ventilation, Less than 24 Consecutive Hours, Continuous Positive Airway Pressure (ICD-10-PCS; principal; 2023-07-16)
DX: C34.92 Malignant neoplasm of unspecified part of left bronchus or lung (principal); J96.01 Acute respiratory failure with hypoxia; C78.89 Secondary malignant neoplasm of other digestive organs; C79.89 Secondary malignant neoplasm of other specified sites; J91.0 Malignant pleural effusion; C77.2 Secondary and unspecified malignant neoplasm of intra-abdominal lymph nodes; C77.1 Secondary and unspecified malignant neoplasm of intrathoracic lymph nodes; C79.72 Secondary malignant neoplasm of left adrenal gland; K59.00 Constipation, unspecified; E11.9 Type 2 diabetes mellitus without complications; G47.33 Obstructive sleep apnea (adult) (pediatric); G89.29 Other chronic pain; M54.50 Low back pain, unspecified; J44.9 Chronic obstructive pulmonary disease, unspecified; F32.A Depression, unspecified; F43.10 Post-traumatic stress disorder, unspecified; R10.13 Epigastric pain; R33.9 Retention of urine, unspecified; Z79.82 Long term (current) use of aspirin; Z79.84 Long term (current) use of oral hypoglycemic drugs; Z79.51 Long term (current) use of inhaled steroids; Z79.02 Long term (current) use of antithrombotics/antiplatelets; Z99.81 Dependence on supplemental oxygen; Z87.891 Personal history of nicotine dependence; Z11.52 Encounter for screening for COVID-19; R93.7 Abnormal findings on diagnostic imaging of other parts of musculoskeletal system
CPT/HCPCS: 0241U; 36415; 71046; 71260; 74177; 80048; 80053; 82803; 82947; 83880; 84484; 85014; 85018; 85025; 85379; 93005; 93010; 94640; 94660; 94664; 94762; 96372; 96374-59; 96375-59; 96376; 99285-25; A9270; G0378; J1170; J1650; J1885; J2930; Q9967

== ENCOUNTER 2023-08-12 10:35 | Emergency (ER) | payer MEDICARE, OTHER ==
[~2023-08-12] VITALS: Ht 172.7 cm; Wt 86.2 kg
[~2023-08-12 10:35] MED LIST changes: +ALBU2.5V5 INH; +BISA10S PR; +DOCU100 PO; +GLUCOPHAGE1000 M3 PO; +NAPR500 PO; +OXYC10ER PO; +PROP160ER PO; +Percocet 10-321 EACH PO; +Prozac20 MG PO; +Prozac40 MG PO; +TAMS.4ER PO; +TRAZ150T57 PO
[2023-08-12 11:46] LABS: BASOPHILS ABSOLUTE AUTO 0.03 K/mm3 (0.00-0.23); BASOPHILS PERCENT AUTO 1 % (0-2); EOSINOPHILS ABSOLUTE AUTO 0.18 K/mm3 (0.00-0.68); EOSINOPHILS PERCENT AUTO 4 % (0-6); Hematocrit 30.9 % (37.0-53.0); IMMATURE GRAN ABSOLUTE AUTO 0.02 K/mm3 (0.00-0.10); IMMATURE GRAN PERCENT AUTO 1 % (0-1); LYMPHOCYTES PERCENT AUTO 22 % (21-46); MONOCYTES ABSOLUTE AUTO 0.69 K/mm3 (0.16-1.47); MONOCYTES PERCENT AUTO 17 % (4-13); Mean Corpuscular HGB 28.6 pg (26.0-34.0); Mean Corpuscular HGB Conc 32.4 g/dL (31.5-36.5); Mean Corpuscular Volume 88 fL (80-100); Mean Platelet Volume 8.4 fL (9.1-12.4); NEUTROPHILS ABSOLUTE AUTO 2.33 K/mm3 (1.96-9.15); NEUTROPHILS PERCENT AUTO 56 % (41-73); Platelet Count 288 K/mm3 (150-400); RDW Coefficient Variation 14.6 % (11.7-14.2); RDW Standard Deviation 46.8 fL (35.1-46.3); White Blood Cell Count 4.15 K/mm3 (4.00-11.30)
[2023-08-12 12:57] LABS: Albumin, Blood 3.1 g/dL (3.4-5.0); Albumin/Globulin Ratio 0.8 (0.8-1.8); Bilirubin, Total 0.5 mg/dL (0.1-1.0); Bun/Creatinine Ratio 15.5 (12.0-20.0); Calcium, Blood 9.3 mg/dL (8.5-10.1); Creatinine, Blood 0.84 mg/dL (0.60-1.20); Globulin, Blood 4.1 g/dL (2.2-4.0); Potassium, Blood 4.5 mmol/L (3.5-5.5); Total Protein, Blood 7.2 g/dL (6.4-8.2)
--- NOTE | 2023-08-12 15:38 | NUR ---
This patient is known to me from his last hospital stay in June 2023. He remains alert, oriented. He reports feeling increased pain in his chest and abdomen. He also reports increased SOB. While he states his pain is not well controlled, he explains he's stopped taking most of his opioid medication and is mostly taking tylenol, because of the constipation. We did discuss symptom management. I encouraged pt to continue drinking fluids, and to increase his Miralax to BID, along with adding in Docusate 100-200mg twice daily for constipation. We also discussed trying warm prune juice with melted butter. He states he has tried this in the past, with success. Spoke to Alice at Dr. Short, and plan to send note along with CT and Xray results from today. [facility].
[2023-08-12 16:26] VITALS: BP 114/62
== END 2023-08-12 16:26 | disposition home or self-care (01) ==
LOC: ER 10:35
PROVIDERS: Physician Assistant
DX: K59.03 Drug induced constipation (principal); T40.2X5A Adverse effect of other opioids, initial encounter; C34.92 Malignant neoplasm of unspecified part of left bronchus or lung; Z79.899 Other long term (current) drug therapy; Z79.02 Long term (current) use of antithrombotics/antiplatelets; G47.33 Obstructive sleep apnea (adult) (pediatric); J44.9 Chronic obstructive pulmonary disease, unspecified; E11.9 Type 2 diabetes mellitus without complications; F32.A Depression, unspecified; Z87.891 Personal history of nicotine dependence
CPT/HCPCS: 71046; 74177; 80053; 83880; 84484; 85025; 93005; 93010; 96374-59; 99284-25; J3010; Q9967

== ENCOUNTER 2023-09-01 12:23 | Inpatient (IN) | payer MEDICARE, OTHER ==
[2023-09-01] VITALS (9 sets, daily range): BP systolic 82–98; BP diastolic 45–72
[~2023-09-01] VITALS: Ht 172.7 cm; Wt 83.0 kg
[2023-09-01] MEDS ORDERED: Morphine Sulfate 4 MG/1 ML Injection IV ONE (13:15)
[2023-09-01] MEDS ORDERED: Ondansetron HCl 2 MG / ML 2ML Vial IV ONE (13:15)
[2023-09-01 13:20] LABS: BASOPHILS ABSOLUTE AUTO 0.03 K/mm3 (0.00-0.23); BASOPHILS PERCENT AUTO 0 % (0-2); EOSINOPHILS ABSOLUTE AUTO 0.02 K/mm3 (0.00-0.68); EOSINOPHILS PERCENT AUTO 0 % (0-6); Hematocrit 36.1 % (37.0-53.0); Hemoglobin 11.6 g/dL (13.5-17.5); IMMATURE GRAN ABSOLUTE AUTO 0.06 K/mm3 (0.00-0.10); IMMATURE GRAN PERCENT AUTO 1 % (0-1); LYMPHOCYTES ABSOLUTE AUTO 0.51 K/mm3 (0.84-5.20); LYMPHOCYTES PERCENT AUTO 7 % (21-46); MONOCYTES ABSOLUTE AUTO 0.83 K/mm3 (0.16-1.47); MONOCYTES PERCENT AUTO 11 % (4-13); Mean Corpuscular HGB 28.6 pg (26.0-34.0); Mean Corpuscular HGB Conc 32.1 g/dL (31.5-36.5); Mean Corpuscular Volume 89 fL (80-100); Mean Platelet Volume 8.4 fL (9.1-12.4); NEUTROPHILS PERCENT AUTO 80 % (41-73); Platelet Count 311 K/mm3 (150-400); RDW Coefficient Variation 15.2 % (11.7-14.2); RDW Standard Deviation 49.8 fL (35.1-46.3); Red Blood Cell Count 4.06 M/mm3 (4.30-5.90); White Blood Cell Count 7.35 K/mm3 (4.00-11.30)
[2023-09-01] MEDS ORDERED: Furosemide 10 MG/ML 4ML Vial IV ONE (13:30)
[2023-09-01 13:43] LABS: Albumin, Blood 2.8 g/dL (3.4-5.0); Albumin/Globulin Ratio 0.6 (0.8-1.8); Bilirubin, Total 0.7 mg/dL (0.1-1.0); Bun/Creatinine Ratio 25.2 (12.0-20.0); Calcium, Blood 10.2 mg/dL (8.5-10.1); Creatinine, Blood 1.03 mg/dL (0.60-1.20); Globulin, Blood 4.6 g/dL (2.2-4.0); Potassium, Blood 4.5 mmol/L (3.5-5.5); Total Protein, Blood 7.4 g/dL (6.4-8.2)
[2023-09-01] MEDS ORDERED: Diltiazem HCl 5 MG / ML 5ML Vial IV ONE ×2 (14:05→15:05)
[2023-09-01] MEDS ORDERED: Inderal80 MG (14:21)
[2023-09-01] MEDS ORDERED: MORP30ER PO (14:21)
[2023-09-01] MEDS ORDERED: EZETIMIBE10 M6 PO (14:22)
[2023-09-01] MEDS ORDERED: PROZAC40 MG PO (14:22)
[2023-09-01] MEDS ORDERED: DULOXETINE HCL60 M1 PO (14:22)
[2023-09-01] MEDS ORDERED: TRAZ150T57 PO (14:23)
[2023-09-01] MEDS ORDERED: ISOSORBIDE MONO30 MG PO (14:23)
[2023-09-01] MEDS ORDERED: PLAVIX75 MG PO (14:23)
[2023-09-01] MEDS ORDERED: FLU VACC QS2023-24(6MOS UP)/PF 60 MCG/0.5 ML SYRINGE IM PRN (16:30)
[2023-09-01] MEDS ORDERED: Morphine Sulfate 20 MG/1ML 1 ML Oral Syringe PO PRN (16:35)
[2023-09-01] MEDS ORDERED: Acetaminophen 325 MG TABLET PO PRN (16:35)
[2023-09-01] MEDS ORDERED: dilTIAZem HCL 120 MG CAP.CD PO SCH (16:43)
[2023-09-01] MEDS ORDERED: dilTIAZem HCL 60 MG CAP.SR PO SCH (17:00)
[2023-09-01] MEDS ORDERED: Digoxin 0.25 MG in Dextrose 5% 100 ML IV SCH (19:00)
[2023-09-01] MEDS ORDERED: DULO60 PO (19:39)
[2023-09-01] MEDS ORDERED: Buspirone HCl15 MG PO (19:42)
[2023-09-01] MEDS ORDERED: BusPIRone HCl 10 MG Tab PO SCH (21:00)
[2023-09-01] MEDS ORDERED: Morphine Sulfate 30 MG TabCR PO SCH (21:00)
[2023-09-01] MEDS ORDERED: TraZODone HCl 100 MG Tab PO SCH (21:00)
[2023-09-01] MEDS ORDERED: BusPIRone HCl 5 MG Tab PO SCH (21:00)
[2023-09-01] MEDS ORDERED: Sennosides 8.6 MG Tab PO SCH (21:00)
[2023-09-01] MEDS ORDERED: Docusate Sodium 100 MG Cap PO SCH (21:00)
[2023-09-02] VITALS (17 sets, daily range): BP systolic 82–133; BP diastolic 46–81
[2023-09-02] MEDS ORDERED: NS 500 ML IV ONE ×2 (00:25→02:20)
--- NOTE | 2023-09-02 01:47 | NUR ---
ASSUME CARE PT ARRIVED TO UNIT AT 194, DIGOXIN GTT RUNNING ON ARRIVAL. [address], INFUSING IN L FOREARM. PT ALERT AND ORIENTED. ABLE TO INDEPENDENTLY TRANSFER SELF FROM STRETCHER TO BED. PT PLACED ON TELEMETRY AND CONTINUOUS PULSE OX MONITORING. BP AUTOMATICALLY SCHEDULED Q15MIN D/T HR IN 150s AND SOFT BP, SEE FLOWSHEETS. PT ORIENTED TO ROOM AND PLAN OF CARE FOR THIS SHIFT. PT C/O UPPER LEFT CHEST/RIB PAIN, RELATED TO PT CANCER DIAGNOSIS. PT TAKES MORPHINE AT HOME FOR PAIN MANAGEMENT. D/T PAIN, PT HAVING DIFFICULTY FINDING COMFORTABLE POSITION, WILL GIVE PAIN MEDICATIONS ABLE PER PT REQUEST. MD CARLISLE CALLED AT 2104 FOR CONCERN OF DILTIAZEM ORDER. RN TO HOLD AT THIS TIME AND MONITOR FOR IMPROVED BP 2300 DILTIAZEM MARKED NOT GIVEN D/T ONGOING SOFT BP MAPS IN MID-60s ON AVERAGE, SEE FLOWSHEET. PT TO RECEIVE SECOND DIGOXIN DOSE AT THIS TIME, PT HR REMAINS IN 150s 0018 MD CARLISLE CALLED D/T PT MAP <60. SEE ORDER FOR NS 500ML BOLUS.
--- NOTE | 2023-09-02 02:46 | NUR ---
MD CARLISLE CALLED AT 0225 FOR LOW BP, MAP <60 SEE NEW ORDER FOR 500ML BOLUS
[2023-09-02] MEDS ORDERED: Midodrine 5 MG Tab PO SCH (03:20)
[2023-09-02 03:50] LABS: BASOPHILS ABSOLUTE AUTO 0.01 K/mm3 (0.00-0.23); BASOPHILS PERCENT AUTO 0 % (0-2); EOSINOPHILS ABSOLUTE AUTO 0.11 K/mm3 (0.00-0.68); EOSINOPHILS PERCENT AUTO 2 % (0-6); Hematocrit 30.8 % (37.0-53.0); Hemoglobin 9.9 g/dL (13.5-17.5); IMMATURE GRAN ABSOLUTE AUTO 0.05 K/mm3 (0.00-0.10); IMMATURE GRAN PERCENT AUTO 1 % (0-1); LYMPHOCYTES ABSOLUTE AUTO 0.81 K/mm3 (0.84-5.20); LYMPHOCYTES PERCENT AUTO 17 % (21-46); MONOCYTES ABSOLUTE AUTO 1.04 K/mm3 (0.16-1.47); MONOCYTES PERCENT AUTO 21 % (4-13); Mean Corpuscular HGB 28.4 pg (26.0-34.0); Mean Corpuscular HGB Conc 32.1 g/dL (31.5-36.5); Mean Corpuscular Volume 88 fL (80-100); Mean Platelet Volume 8.4 fL (9.1-12.4); NEUTROPHILS ABSOLUTE AUTO 2.89 K/mm3 (1.96-9.15); NEUTROPHILS PERCENT AUTO 59 % (41-73); Platelet Count 248 K/mm3 (150-400); RDW Coefficient Variation 15.2 % (11.7-14.2); RDW Standard Deviation 48.4 fL (35.1-46.3); Red Blood Cell Count 3.49 M/mm3 (4.30-5.90); White Blood Cell Count 4.91 K/mm3 (4.00-11.30)
[2023-09-02 04:10] LABS: Albumin, Blood 2.5 g/dL (3.4-5.0); Albumin/Globulin Ratio 0.7 (0.8-1.8); Bilirubin, Total 0.4 mg/dL (0.1-1.0); Bun/Creatinine Ratio 32.1 (12.0-20.0); Calcium, Blood 9.1 mg/dL (8.5-10.1); Globulin, Blood 3.7 g/dL (2.2-4.0); Potassium, Blood 4.2 mmol/L (3.5-5.5); Total Protein, Blood 6.2 g/dL (6.4-8.2)
[2023-09-02] MEDS ORDERED: Pantoprazole Sodium 40 MG Tab PO SCH ×2 (06:00)
--- NOTE | 2023-09-02 06:38 | NUR ---
SHIFT SUMMARY 0315 MD CARLISLE CALLED FOR LOW BP. SEE ORDERS FROM MD PEDRO FOR MIDODRINE. PT RESTING MORE COMFORTABLY THIS AM. BP IS IMPROVED. PT REMAINS ON CPAP WITH SATS IN HIGH 90s.
[2023-09-02] MEDS ORDERED: Tamsulosin HCl 0.4 MG Cap PO SCH (09:00)
[2023-09-02] MEDS ORDERED: Enoxaparin 40 MG/0.4 ML SYR SC SCH (09:00)
[2023-09-02] MEDS ORDERED: Dexamethasone 2 MG Tab PO SCH (09:00)
[2023-09-02] MEDS ORDERED: Digoxin 0.125 MG Tab PO SCH (09:00)
[2023-09-02] MEDS ORDERED: FLUoxetine HCL 20 MG CAP PO SCH (09:00)
--- NOTE | 2023-09-02 10:01 | NUR ---
AM NOTE... ASSUMED CARE OF PT AT 0700. PT IS A&Ox4 AND SBA IN THE ROOM. HE IS ON CPAP W/3L BLEED IN OR 3L NC WHEN OFF THE CPAP. HE IS IN SINUS TACH W/BBB THAT FLIPS INTO AFIB W/RVR AND BBB IN THE 90'S-120'S. PT'S BP HAS IMPROVED WITH SBPs IN THE 120'S-130'S. PT DENIES ANY CHEST PAIN AT THIS TIME. L/S CLEAR AND DIM T/O. BT PRESENT AND HYPOACTIVE, ABD IS SOFT AND NONTENDER TO PALPATION. CALL LIGHT IN REACH WILL CONTINUE TO MONITOR.
--- NOTE | 2023-09-02 15:04 | NUR ---
Spiritual care visit conducted. Patient is lying on his side and wearing a Cpap so comnmunication is strained. He has to lift the mask to talk and he desats quickly upon removing the suction from the mask. He tells me that he is not doing well emotionally and heartily welcomes prayer. I gladly provided prayer and patient becomes tearful as I am praying. After the prayer he states, "The prayer was exactly what I needed." He reaches out his hand and voices much appreciations as he holds it. He asks if I would come visit again. I will continue to remain available to patient and family.
--- NOTE | 2023-09-02 17:42 | NUR ---
SHIFT SUMMARY... NO ACUTE NEGATIVE CHANGES NOTED THIS SHIFT. PT CONTINUES TO BE IN AFLUTTER IN THE 90'S-120'S, BP STABLE WITH MAPS>65, MIDODRINE HELD THIS SHIFT. PT USES CPAP WHEN SLEEPING WITH 3L BLEED IN AND 3L NC WHILE AWAKE. PT HAS SLEPT MOST OF THIS SHIFT BUT WAKES EASILY TO VERBAL STIMULI. CALL LIGHT IN REACH WILL CONITNUE TO MONITOR UNTIL REPORT IS GIVEN TO ONCOMING RN.
[2023-09-02] MEDS ORDERED: Albuterol 2.5 MG/3 ML VIAL INH PRN (20:10)
--- NOTE | 2023-09-03 06:18 | NUR ---
SHIFT SUMMARY PATIENT ALERT AND ORIENTED X4. MEDICATED PER EMAR FOR PAIN. PATIENT IS ON 3 LITERS O2 VIA NASAL CANULA, WHICH IS HIS BASELINE, WITH SPO2 94%. PATIENT DENIES CHEST PAIN AND SHORTNESS OF BREATH. VITAL SIGNS STABLE, SINUS RHYTHM-SINUS TACH ON TELE. NO ACUTE ISSUES NOTED OVERNIGHT. WILL CONTINUE TO MONITOR. CALL LIGHT WITHIN REACH.
--- NOTE | 2023-09-03 07:15 | NUR ---
Assumed care of pt at 0700. Bedside report recieved from Yvonne SINGH. Pt A&O x 4. Answers questions, follows commands, verbalizes needs, pleasant and cooperative with care. Wearing CPAP and states he would like to sleep for a little while longer. SpO2 90% or greater per continuous sat monitoring.
[2023-09-03 08:25] VITALS: BP 115/60
[2023-09-03] MEDS ORDERED: Ipratropium Bromide INH 0.02% 0.5 mg/2.5ML Vial INH PRN (10:55)
[2023-09-03] MEDS ORDERED: dilTIAZem HCL 60 MG CAP.SR PO ONE (10:55)
[2023-09-03] MEDS ORDERED: dilTIAZem HCL 120 MG CAP.CD PO ONE (10:55)
--- NOTE | 2023-09-03 11:32 | NUR ---
Medicated for L lateral chest pain, which pt states is typical for him and he attributes to cancer.
[2023-09-03 12:01] VITALS: BP 105/67
[2023-09-03 15:04] VITALS: BP 113/62
--- NOTE | 2023-09-03 15:13 | NUR ---
Met with pt, introduced myself as a PC RN to offer support. He was accepting of this PC RN visit. He is jovial t/o visit. Primary RN to room to treat mild pain as reported by pt. Will remain available as needed. Not an appropriate time to discuss POLST/AD.
--- NOTE | 2023-09-03 16:53 | NUR ---
SUMMARY A&O x 4. Answers questions, follows commands, verbalizes needs. Pleasant and cooperative with care. SpO2 90% or greater with 3 LPM NC, which is patient's baseline O2 use. SR per monitor, rate low 100s. Discussed with Dr Ahumada who increased pt's diltiazem. BP tolerated increase well and midodrine was held per parmeters.
[2023-09-03 20:42] VITALS: BP 107/67
[2023-09-03] MEDS ORDERED: Diltiazem HCl 180 MG Cap.CD PO SCH (21:00)
[2023-09-03 23:57] VITALS: BP 124/58
[2023-09-04 03:45] VITALS: BP 117/51
--- NOTE | 2023-09-04 06:20 | NUR ---
SHIFT SUMMARY PATIENT ALERT AND ORIENTED X4. MEDICATED PER EMAR FOR PAIN. PATIENT CONTINUES ON 3 LITERS O2 WHILE AWAKE AND CPAP AT NIGHT, SPO2 >90%. PATIENT DENIES HAVING SHORTNESS OF BREATH. VITAL SIGNS STABLE, SINUS RHYTHM ON TELE. HEART RATE IN THE 80-90'S WHEN SLEEPING BUT WAS IN THE 120'S WITH ACTIVITY. WILL CONTINUE TO MONITOR. CALL LIGHT WITHIN REACH.
[2023-09-04 08:45] VITALS: BP 120/66
--- NOTE | 2023-09-04 09:12 | NUR ---
Pt sitting on side of bed, requesting breathing tx. HR 122 bpm, spo2 96% on 3.5 l/min n.c. No adventitious lung sounds noted to auscultation, anterior and posterior. No dyspnea noted, but pt states that he feels like he needs a treatment. Called respiratory therapist. meanwhile, pt put on his CPAP with O2 bleed in. He appears to be resting comfortably in bed at this time, no HOB elevation per his initiative, on his side.
[2023-09-04 12:54] VITALS: BP 124/59
[2023-09-04] MEDS ORDERED: Morphine Sulfate 30 MG TabCR PO SCH (15:00)
[2023-09-04 15:34] VITALS: BP 132/65
[2023-09-04 19:59] VITALS: BP 137/85
[2023-09-04 23:23] VITALS: BP 128/103
[2023-09-05 05:19] VITALS: BP 122/78
--- NOTE | 2023-09-05 06:25 | NUR ---
SHIFT SUMMARY PATIENT ALERT AND ORIENTED X4. MEDICATED PER EMAR FOR PAIN. REPORTED HAVING SOME SHORTNESS OF BREATH. MAINTAINED SATURATION >90% ON BIPAP. VITAL SIGNS STABLE, SINUS RHYTHM ON TELE WITH NO EVENTS. NO ACUTE ISSUES NOTED OVERNIGHT. WILL CONTINUE TO MONITOR. CALL LIGHT WITHIN REACH.
[2023-09-05 07:33] VITALS: BP 108/69
[2023-09-05] MEDS ORDERED: DEXA2 PO (09:40)
[2023-09-05] MEDS ORDERED: DILT180 PO (09:40)
[2023-09-05] MEDS ORDERED: DOCU100 PO (09:40)
[2023-09-05] MEDS ORDERED: MIRALAX17 GM PO (09:41)
[2023-09-05] MEDS ORDERED: SENN187 PO (09:41)
[2023-09-05] MEDS ORDERED: MORP20L SL (09:43)
--- NOTE | 2023-09-05 11:46 | NUR ---
SHIFT/DISCHARGE SUMMARY: PATIENT A/OX4, CALM, PLEASANT AND COOPERATIVE c CARE. PATIENT DENIES CP/PRESSURE, SOV, N/V AND DIZZINESS. PATIENT REPORTS PAIN 5-10 TO L SIDE RIB CAGE, MEDICATED c SCHEDULED/PRN PAIN MEDS c GOOD EFFECT. PATIENT ON TELE, SR/ST HR IN THE HIGH 90'S TO LOW 100'S BPM. PATIENT ON 3L O2 VIA NC AT BASELINE AND USES BIPAP c 3L O2 BLEED IN WHEN SLEEPING DURING THE DAY AND HS. PATIENT IS INDEPENDENT IN ROOM/BATHROOM, CONTINENCE OF BOWELS/BLADDER AND USES URINAL. PATIENT RECEIVED SCHEDULED MEDS PER EMAR. VITAL SIGNS REVIEWED. PIV TO L WRIST WAS DC'D BY ASSISTANT ACCOUNT MANAGER STAFFMARY. PATIENT DISCHARGE HOME. DISCHARGE INSTRUCTIONS PACKET GIVEN TO PATIENT. EDUCATE PATIENT REGARDING ADMITTING DX'S OF NEW ONSET AFIB, S/S, TX, NEW PRESCRIBED RX, BOWEL/SELF CARE, F/U c DR. KELLER AND PCP. PATIENT VERBALIZED UNDERSTANDING AND NO FURTHER QUESTIONS AT THIS TIME. PATIENT RX WAS FAXED TO PATIENT PREFERRED [facility] ([facility] ALL PATIENT PERSONAL BELONGINGS WERE SENT HOME c THE PATIENT. PATIENT LEFT THE ROOM AT 1127 AND WAS TRANSPORTED VIA WHEELCHAIR BY ASSISTANT ACCOUNT MANAGER STAFFMARY TO PATIENT ENTRANCE.
== END 2023-09-05 11:27 | disposition home or self-care (01) | DRG 308 ==
LOC: ER 12:23 → PCU 12:24
PROVIDERS: Emergency Medicine; ADMIT Internal Medicine
DX: I48.0 Paroxysmal atrial fibrillation (principal); J96.21 Acute and chronic respiratory failure with hypoxia; C34.90 Malignant neoplasm of unspecified part of unspecified bronchus or lung; J91.0 Malignant pleural effusion; J44.9 Chronic obstructive pulmonary disease, unspecified; F43.10 Post-traumatic stress disorder, unspecified; F32.A Depression, unspecified; G89.3 Neoplasm related pain (acute) (chronic); G47.33 Obstructive sleep apnea (adult) (pediatric); E11.9 Type 2 diabetes mellitus without complications; N40.0 Benign prostatic hyperplasia without lower urinary tract symptoms; G25.0 Essential tremor; I48.92 Unspecified atrial flutter; R94.31 Abnormal electrocardiogram [ECG] [EKG]; Z99.81 Dependence on supplemental oxygen; Z87.891 Personal history of nicotine dependence; Z79.02 Long term (current) use of antithrombotics/antiplatelets
CPT/HCPCS: 36415; 71045; 71260; 80053; 83735; 83880; 84443; 84484; 85025; 93005; 93010; 94640; 94660; 94664; 94762; 96365; 96366; 96372; 96374-59; 96375-59; 99285-25; A9270; G0378; J1160; J1650; J1940; J2270; J2405; J7040; Q9967